=== PATIENT | female | born 1965 | race Caucasian/White ===

== ENCOUNTER 2023-12-06 19:56 | Emergency (ER) | payer SELFPAY ==
[~2023-12-06] VITALS: Ht 160 cm; Wt 95.3 kg
[2023-12-06 20:15] VITALS: PULSE 104; RESP 18; TEMP 98.6
[2023-12-06] MEDS: KETOROLAC TROMETHAMINE 60 MG/2 ML VIAL IM STA (20:31)
[2023-12-06] MEDS ORDERED: ULTRAM 50MG50 MG PO (22:18)
[2023-12-06 22:25] VITALS: BP 162/106; PULSE 108; RESP 20; TEMP 97.9; O2SAT 99
== END 2023-12-06 22:14 | disposition home or self-care (01) ==
LOC: ER 20:01
DX: M25.562 Pain in left knee (principal); I10 Essential (primary) hypertension; I48.91 Unspecified atrial fibrillation; Z87.19 Personal history of other diseases of the digestive system; F17.210 Nicotine dependence, cigarettes, uncomplicated
CPT/HCPCS: 73562; 99283; J1885

== ENCOUNTER 2024-05-02 14:40 | Emergency (ER) | payer SELFPAY ==
[~2024-05-02] VITALS: Ht 160 cm; Wt 95.3 kg
[~2024-05-02 14:40] MED LIST: ULTRAM 50MG50 MG PO
[2024-05-02 15:16] LABS: BASOPHILS # (AUTO) 0.1 (0.0-0.1); BASOPHILS % 0.7 % (0.0-1.0); EOSINOPHILS # (AUTO) 0.1 (0.0-0.4); EOSINOPHILS % 1.3 % (0.0-6.0); HEMATOCRIT 49.3 % (34.2-44.1); HEMOGLOBIN 15.3 g/dL (12.0-16.0); LYMPHOCYTES # (AUTO) 2.2 (1.0-3.2); LYMPHOCYTES % 21.9 % (18.0-39.1); MEAN CORPUSCULAR HEMOGLOBIN 31.1 pg (28-32); MEAN CORPUSCULAR VOLUME 100.2 fL (81-99); MONOCYTES # (AUTO) 0.8 (0.2-0.8); MONOCYTES % 7.9 % (4.4-11.3); NEUTROPHILS # (AUTO) 6.7 (2.1-6.9); PLATELET COUNT 239 x10e3/uL (140-360); RED BLOOD COUNT 4.92 x10e6/uL (3.6-5.1); RED CELL DISTRIBUTION WIDTH 13.1 % (11.7-14.4); WHITE BLOOD COUNT 9.88 x10e3/uL (4.8-10.8)
[2024-05-02 15:25] LABS: CLARITY,URINE CLOUDY (CLEAR); COLOR,URINE YELLOW (YELLOW)
[2024-05-02 15:26] LABS: BILIRUBIN,URINE NEGATIVE (NEGATIVE); GLUCOSE, URINE NEGATIVE (NEGATIVE); KETONES,URINE NEGATIVE (NEGATIVE); LEUKOCYTE ESTERASE ,URINE NEGATIVE (NEGATIVE); NITRITE,URINE NEGATIVE (NEGATIVE); PH,URINE 5.5 (5 - 7); PROTEIN,URINE DIPSTICK >=300 (NEGATIVE); URINE UROBILINOGEN 0.2 mg/dL (0.2 - 1)
[2024-05-02 15:33] LABS: BACTERIA,URINE MANY /HPF; CALCIUM OXALATE CRYSTALS,UR MODERATE (FEW); EPITHELIAL CELLS,URINE FEW /LPF; URIC ACID CRYSTALS,URINE FEW (FEW); WBC,URINE (MAN) 0-5 /HPF (0-5)
[2024-05-02 15:37] LABS: ALBUMIN/GLOBULIN RATIO 1.3 (0.8-2.0); ANION GAP 14.7 mmol/L (8-16); BILIRUBIN,TOTAL 0.6 mg/dL (0.2-1.2); CALCIUM 10.9 mg/dL (8.4-10.2); CREATININE, SERUM 0.75 mg/dL (0.57-1.11); POTASSIUM 4.7 mmol/L (3.5-5.1); TOTAL PROTEIN 7.1 g/dL (6.5-8.1)
[2024-05-02 15:38] LABS: INR 1.03; PARTIAL THROMBOPLASTIN TIME 31.2 seconds (23.8-35.5); PROTHROMBIN TIME 14.1 seconds (11.9-14.5)
[2024-05-02] MEDS: SODIUM CHLORIDE 0.9% 1000ML 1,000 ML IV SCH (15:53)
[2024-05-02] MEDS: MAGNESIUM/ALUMINUM/SIMETHICONE 30 ML UDC PO ONE (15:53)
[2024-05-02] MEDS: ONDANSETRON HCL INJ 2MG/ML 2ML 2 MG/ML VIAL IV STA (15:53)
[2024-05-02] MEDS: BELLADONNA ALK/PHENOBARBITAL 5 ML UDC PO STA (15:53)
[2024-05-02 15:54] VITALS: BP 163/128; PULSE 103
[2024-05-02] MEDS: DILTIAZEM HCL 5 MG/ML 5 ML VIAL IV ONE (15:54)
[2024-05-02] MEDS: LIDOCAINE VISC 2% SOLN 15 ML UDC PO ONE (15:54)
[2024-05-02 16:25] VITALS: PULSE 70; RESP 16; TEMP 97.8; O2SAT 97
[2024-05-02] MEDS ORDERED: ELIQUIS5 MG PO (16:36)
[2024-05-02] MEDS ORDERED: METOPROLOL TART25 MG PO (16:36)
== END 2024-05-02 16:59 | disposition home or self-care (01) ==
LOC: ER 15:06
DX: R10.13 Epigastric pain (principal); K29.70 Gastritis, unspecified, without bleeding; I48.91 Unspecified atrial fibrillation; R11.0 Nausea; F17.210 Nicotine dependence, cigarettes, uncomplicated; I10 Essential (primary) hypertension; R94.31 Abnormal electrocardiogram [ECG] [EKG]; Z87.19 Personal history of other diseases of the digestive system
CPT/HCPCS: 36415; 71045; 80053; 81001; 83690; 84484; 85025; 85610; 85730; 93005; 99284; J2405; J2470